=== PATIENT | male | born 1995 | race African-American/Black ===

== ENCOUNTER 2024-11-07 13:52 | Emergency (ER) | payer SELFPAY ==
[2024-11-07 15:53] LABS: #Basophils 0.05 10x3/uL (0.0-0.2); #Eosinophils 0.15 10x3/uL (0.0-0.7); #Monocytes 0.31 10x3/uL (0.11-0.59); #Neutrophils 1.42 10x3/uL (1.40-6.50); %Basophils 1.6 % (0.0-1.0); %Eosinophils 4.7 % (0.0-10.0); %Lymphocytes 38.8 % (21.0-51.0); %Monocytes 9.8 % (0.0-10.0); %Neutrophils 44.8 % (42.0-75.0); Hematocrit 42.5 % (42.0-52.0); Hemoglobin 13.8 g/dL (14.0-18.0); Mean Corpuscular Hemoglobin 30.5 pg (27.0-31.0); Mean Corpuscular Volume 93.8 fL (78.0-98.0); Platelet Count 313 10x3/uL (130-400); Red Blood Cell (RBC) Count 4.53 mill/uL (4.70-6.10); White Blood Cell (WBC) Count 3.17 10x3/uL (4.8-10.8)
[2024-11-07 16:10] LABS: Anion Gap 18 mmol/L (10-20); BUN (Urea Nitrogen) 12 mg/dL (8.9-20.6); Calc. Creatinine Clearance 0 mL/min (70-130); Calcium 8.7 mg/dL (7.8-10.44); Carbon Dioxide 26 mmol/L (22-29); Chloride 105 mmol/L (98-107); Glucose 92 mg/dL (70-105); Potassium 4.0 mmol/L (3.5-5.1); Sodium 145 mmol/L (136-145)
[2024-11-07] MEDS ORDERED: Dicyclomine 20 MG TAB ONE (16:34)
[2024-11-07] MEDS ORDERED: Ibuprofen 800 MG TAB ONE (16:34)
[2024-11-07 16:35] LABS: Bacteria/HPF None Seen HPF (None Seen); CAUTI Indications for Culture Pelvic or flank pain; Glucose, Urine (Dipstick) Normal (Negative); Leukocyte Negative Leu/uL (Negative); Protein, Urine (Dipstick) Negative (Neg-Trace); RBC/HPF 0-3 HPF (0-3); Specific Gravity, Urine 1.024 (1.002-1.036); WBC/HPF 0-3 HPF (0-3)
[2024-11-07] MEDS ORDERED: Diphenoxylate HCl/Atropine Tablet ONE ×2 (16:35→16:36)
[2024-11-07 16:37] LABS: Urine Culture Reflex No No
== END 2024-11-07 16:43 | disposition home or self-care (01) ==
LOC: ERS 13:52
DX: R11.10 Vomiting, unspecified (principal); R19.7 Diarrhea, unspecified; R10.84 Generalized abdominal pain
CPT/HCPCS: 36415; 80048; 81001; 85025; 99283; Q0162